=== PATIENT | female | born 1995 | race Caucasian/White ===

== ENCOUNTER 2017-03-07 07:27 | Inpatient (IN) | payer BC, MEDICAID ==
[2017-03-07] MEDS ORDERED: Ondansetron 4 MG/2 ML SDV IVPUSH PRN (07:41)
[2017-03-07] MEDS ORDERED: Acetaminophen 325 MG Tab PO PRN (07:41)
[2017-03-07] MEDS ORDERED: Nalbuphine 20 MG/1 ML Amp IVPUSH PRN (07:41)
[2017-03-07] MEDS ORDERED: Sodium Chloride 0.9% 10 ML Syringe FLUSH PRN (07:41)
[2017-03-07] MEDS ORDERED: Oxytocin/Lactated Ringers 10 UNIT/1,000 ML BAG IV SCH (07:45)
[2017-03-07] MEDS: Misoprostol 25 MCG (1/4 of 100 MCG) Tab VAG PRN ×3 (08:04→16:08)
--- NOTE | 2017-03-07 08:17 | PCM.LDHP ---
L&D History of Present Illness - General Date of Service: 03/07/17 Admit Problem/Dx: Patient Status Order with Admit Dx/Problem 03/07/17 07:42 Patient Status [ADT] Routine Admission Diagnosis/Problem Admission Diagnosis/Problem Normal Source of Information: Patient History Limitations: Reports: No limitations - History of Present Illness Introduction:: Patient is a 21 y/o at 37 1/7 wks who presents for planned IOL for preeclampsia without severe features. Has had findings of intermittently mild BP's since seen on L&D on 02/21/17. Normal labs. Some intermittent headaches. Reports same symptoms today. Intermittent headaches. No vision changes or RUQ pain. No other issues. 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 : 4 Para: 0 LMP (Approximate): - Past Surgical History Musculoskeletal Surgical History: Reports: Other (see below) (foot surgery) Social & Family History - Family History Family Medical History: Noncontributory - Tobacco Use Smoking Status *Q: Never Smoker - Alcohol Use Alcohol Use History: No - Recreational Drug Use Recreational Drug Use: No H&P Review of Systems - Review of Systems: Review Of Systems: See Below General: Reports: no symptoms Pulmonary: Reports: No Symptoms Cardiovascular: Reports: no symptoms Gastrointestinal: Reports: No symptoms Genitourinary: Reports: no symptoms Musculoskeletal: Reports: no symptoms Psychiatric: Reports: no symptoms Neurological: Reports: Headache (intermittent ) L&D Exam - Exam Exam: See Below - Vital Signs Weight: 83.143 kg - OB Specific Contraction Intensity: Irritability movement: active heart tones: present heart tones per min: 140 Heart Rate (FHR) Variability: Moderate (6-25 bmp) Presentation: Vertex - Caal Score Caal Score Cervix Position: Midposition Caal Score Consistency: Medium Caal Score Effacement: 0-30% Caal Score Dilation: 1-2 cm (Fingertip) Caal Score 's Station: -2 Caal Score Total: 4 - Exam General: alert, oriented, cooperative Lungs: Clear to auscultation, Normal respiratory effort Cardiovascular: regular rate, regular rhythm Abdomen: Soft Genitourinary: Normal external exam Extremities: normal inspection Skin: warm, dry, intact Neurological: reflexes equal bilateral DTR: 2+: patella (L), patella (R) - Problem List (1) Preeclampsia SNOMED Code(s): 251955220 ICD Code: O14.90 - UNSPECIFIED PRE-ECLAMPSIA, UNSPECIFIED TRIMESTER Status : Acute Current Visit: Yes Qualifiers: Trimester: third trimester Qualified Code(s): O14.93 - Unspecified pre- eclampsia, third trimester (2) 37 weeks gestation of SNOMED Code(s): 46496874 ICD Code: Z3A.37 - 37 WEEKS GESTATION OF Status: Acute Current Visit: Yes (3) Rh negative state in antepartum period SNOMED Code(s): 486062479, 384422739 ICD Code: O09.899 - SUPERVISION OF OTHER HIGH RISK PREGNANCIES, UNSP TRIMESTER Status: Acute Current Visit: Yes Qualifiers: Trimester: third trimester Qualified Code(s): O09.893 - Supervision of other high risk pregnancies, third trimester Problem List Initiated/Reviewed/Updated: Yes Orders Last 24hrs: Active Orders 24 hr Category Date Time Status Patient Status [ADT] Routine ADT 03/07/17 07:42 Active Activity as Tolerated [RC] PFP Care 03/07/17 07:42 Active Communication Order [RC] ASDIRECTED Care 03/07/17 07:42 Active Communication Order [RC] ASDIRECTED Care 03/07/17 07:42 Active Communication Order [RC] ASDIRECTED Care 03/07/17 07:42 Active Communication Order [RC] ASDIRECTED Care 03/07/17 07:42 Active Heart Tones [RC] ASDIRECTED Care 03/07/17 07:42 Active Notify Provider [RC] ASDIRECTED Care 03/07/17 07:42 Active Notify Provider [RC] PFP Care 03/07/17 07:42 Active Notify Provider [RC] PRN Care 03/07/17 07:42 Active Peripheral IV Care [RC] . DIRECTED Care 03/07/17 07:42 Active Vaginal Exam [RC] ASDIRECTED Care 03/07/17 07:42 Active Vital Signs [RC] PER UNIT ROUTINE Care 03/07/17 07:42 Active Regular Diet [DIET] Diet 03/07/17 Breakfast Active ALANINE AMINOTRANSFERASE,ALT [CHEM] Routine Lab 03/07/17 07:41 Ordered ASPARTATE AMNIOTRANSFERASE,AST [CHEM] Routine Lab 03/07/17 07:41 Ordered CBC W/O DIFF,HEMOGRAM [HEME] Routine Lab 03/07/17 07:41 Ordered CREATININE W/GFR [CHEM] Routine Lab 03/07/17 07:41 Ordered TYPE AND SCREEN [BBK] Routine Lab 03/07/17 07:41 Ordered UA W/O MICROSCOPIC [URIN] Routine Lab 03/07/17 08:00 Uncollected Acetaminophen [Tylenol] Med 03/07/17 07:41 Active 650 mg PO Q4H PRN Lactated Ringers [Ringers, Lactated] 1,000 ml Med 03/07/17 07:45 Active IV ASDIRECTED Misoprostol [Cytotec] Med 03/07/17 07:41 Active 25 mcg VAG Q4H PRN Nalbuphine [Nubain] Med 03/07/17 07:41 Active 10 mg IVPUSH Q2H PRN Ondansetron [Zofran] Med 03/07/17 07:41 Active 4 mg IVPUSH Q4H PRN Oxytocin/Lactated Ringers [Pitocin in LR 10 Units/1,000 Med 03/07/17 07:45 Active ML] 10 unit in 1,000 ml IV TITRATE Sodium Chloride 0.9% [Saline Flush] Med 03/07/17 07:41 Active 10 ml FLUSH ASDIRECTED PRN Electronic Heart Tones Ext w TOCO [WOMSER] Oth 03/07/17 07:42 Ordered Routine Electronic Heart Tones Internal [WOMSER] Per Unit Oth 03/07/17 07:42 Ordered Routine Peripheral IV Insertion Adult [OM.PC] Routine Oth 03/07/17 07:42 Ordered Peripheral IV Insertion Adult [OM.PC] Routine Oth 03/07/17 07:42 Ordered Resuscitation Status Routine Resus Stat 03/07/17 07:41 Ordered Medication Orders Acetaminophen (Tylenol) 650 mg PO Q4H PRN PRN Reason: Pain (Mild 1-3) and fever Lactated Ringer's (Ringers, Lactated) 1,000 mls @ 40 mls/hr IV ASDIRECTED DIPTI Oxytocin/Lactated Ringer's (Pitocin In Lr 10 Units/1,000 Ml) 10 unit in 1,000 mls @ 500 mls/hr IV TITRATE DIPTI PRN Reason: Protocol Misoprostol (Cytotec) 25 mcg VAG Q4H PRN PRN Reason: cervical ripening Stop: 03/07/17 15:42 Last Admin: 03/07/17 08:04 Dose: 25 mcg Nalbuphine HCl (Nubain) 10 mg IVPUSH Q2H PRN PRN Reason: Pain (moderate 4-6) Ondansetron HCl (Zofran) 4 mg IVPUSH Q4H PRN PRN Reason: Nausea/Vomiting Sodium Chloride (Saline Flush) 10 ml FLUSH ASDIRECTED PRN PRN Reason: Keep Vein Open Assessment/Plan Comment:: 21 y/o at 37 1/7 wks presents for IOL for preeclampsia without severe features * CBC, T&S, AST, ALT, Cr, and UA on admission * Plan for cytotec for now with madsen bulb placement when able. Eventual pitocin/AROM if needed * Pain management per patient preference * Monitor BP's, signs/symptoms of preeclampsia closely * Anticpate Rh Negative * Assess baby girl blood type after delivery to see if additional Rhogam needed Glenis Gillette MD
--- NOTE | 2017-03-07 12:25 | PCM.PNLD ---
Labor Progress Note - VS & Meds Vital Signs: Last Vital Signs Temp 36.3 C 03/07/17 07:42 Pulse 66 03/07/17 07:42 Resp 17 03/07/17 07:42 BP 129/81 03/07/17 07:42 Pulse Ox 99 03/07/17 07:42 Active Medications: Current Medications Acetaminophen (Tylenol) 650 mg PO Q4H PRN PRN Reason: Pain (Mild 1-3) and fever Lactated Ringer's (Ringers, Lactated) 1,000 mls @ 40 mls/hr IV ASDIRECTED DIPTI Oxytocin/Lactated Ringer's (Pitocin In Lr 10 Units/1,000 Ml) 10 unit in 1,000 mls @ 500 mls/hr IV TITRATE DIPTI PRN Reason: Protocol Misoprostol (Cytotec) 25 mcg VAG Q4H PRN PRN Reason: cervical ripening Stop: 03/07/17 15:42 Last Admin: 03/07/17 12:15 Dose: 25 mcg Nalbuphine HCl (Nubain) 10 mg IVPUSH Q2H PRN PRN Reason: Pain (moderate 4-6) Ondansetron HCl (Zofran) 4 mg IVPUSH Q4H PRN PRN Reason: Nausea/Vomiting Sodium Chloride (Saline Flush) 10 ml FLUSH ASDIRECTED PRN PRN Reason: Keep Vein Open - Uterine Contractions Uterine Monitoring Mode: External [place] Contraction Intensity: Mild Uterine Resting Tone: Soft - Monitoring Monitor Mode: External Ultrasound Heart Rate (FHR) Baseline: 145 Heart Rate (FHR) Variability: Moderate (6-25 bmp) Accelerations: Present, 15x15 Decelerations: None Strip Review: Category I - Vaginal Exam Dilation (cm): 1 Effacement (Percent): 75 Station: -2 Cervical Position: Midposition - Labor Progress (Free Text) Labor Progress: Patient doing well. Labs returned normal. BP's with only one mild range BP thus far. Attempt made at placing madsen bulb, but unsuccessful. 2nd cytotec placed. Continue current management Glenis Gillette MD
--- NOTE | 2017-03-07 16:16 | PCM.PNLD ---
Labor Progress Note - VS & Meds Vital Signs: Last Vital Signs Temp 36.3 C 03/07/17 07:42 Pulse 66 03/07/17 07:42 Resp 17 03/07/17 07:42 BP 129/81 03/07/17 07:42 Pulse Ox 99 03/07/17 07:42 Active Medications: Current Medications Acetaminophen (Tylenol) 650 mg PO Q4H PRN PRN Reason: Pain (Mild 1-3) and fever Lactated Ringer's (Ringers, Lactated) 1,000 mls @ 40 mls/hr IV ASDIRECTED DIPTI Oxytocin/Lactated Ringer's (Pitocin In Lr 10 Units/1,000 Ml) 10 unit in 1,000 mls @ 500 mls/hr IV TITRATE DIPTI PRN Reason: Protocol Nalbuphine HCl (Nubain) 10 mg IVPUSH Q2H PRN PRN Reason: Pain (moderate 4-6) Ondansetron HCl (Zofran) 4 mg IVPUSH Q4H PRN PRN Reason: Nausea/Vomiting Sodium Chloride (Saline Flush) 10 ml FLUSH ASDIRECTED PRN PRN Reason: Keep Vein Open Discontinued Medications Misoprostol (Cytotec) 25 mcg VAG Q4H PRN PRN Reason: cervical ripening Stop: 03/07/17 15:42 Last Admin: 03/07/17 16:08 Dose: 25 mcg - Uterine Contractions Uterine Monitoring Mode: External [place] Contraction Intensity: Mild to Moderate Uterine Resting Tone: Soft - Monitoring Monitor Mode: External Ultrasound Heart Rate (FHR) Baseline: 135 Heart Rate (FHR) Variability: Moderate (6-25 bmp) Accelerations: Present, 15x15 Decelerations: None Strip Review: Category I - Vaginal Exam Dilation (cm): 1 Effacement (Percent): 75 Station: -2 Cervical Position: Midposition - Labor Progress (Free Text) Labor Progress: Patient doing well. Feeling more uncomfortable with last cytotec dose. Cervix mostly the same, but slightly easier check and more soft. BP's upper normal range. Doing well otherwise. Continue present management. 3rd cytotec dose placed.
[2017-03-07] MEDS ORDERED: Misoprostol 25 MCG (1/4 of 100 MCG) Tab ONE (19:56)
[2017-03-07] MEDS ORDERED: Misoprostol 25 MCG (1/4 of 100 MCG) Tab VAG ONE (20:17)
--- NOTE | 2017-03-07 20:25 | PCM.PNLD ---
Labor Progress Note - VS & Meds Vital Signs: Last Vital Signs Temp 36.3 C 03/07/17 07:42 Pulse 66 03/07/17 07:42 Resp 17 03/07/17 07:42 BP 129/81 03/07/17 07:42 Pulse Ox 99 03/07/17 07:42 Active Medications: Current Medications Acetaminophen (Tylenol) 650 mg PO Q4H PRN PRN Reason: Pain (Mild 1-3) and fever Lactated Ringer's (Ringers, Lactated) 1,000 mls @ 40 mls/hr IV ASDIRECTED DIPTI Oxytocin/Lactated Ringer's (Pitocin In Lr 10 Units/1,000 Ml) 10 unit in 1,000 mls @ 500 mls/hr IV TITRATE DITPI PRN Reason: Protocol Misoprostol (Cytotec) 25 mcg VAG ONETIME ONE Stop: 03/07/17 20:18 Nalbuphine HCl (Nubain) 10 mg IVPUSH Q2H PRN PRN Reason: Pain (moderate 4-6) Ondansetron HCl (Zofran) 4 mg IVPUSH Q4H PRN PRN Reason: Nausea/Vomiting Sodium Chloride (Saline Flush) 10 ml FLUSH ASDIRECTED PRN PRN Reason: Keep Vein Open Discontinued Medications Misoprostol (Cytotec) 25 mcg VAG Q4H PRN PRN Reason: cervical ripening Stop: 03/07/17 15:42 Last Admin: 03/07/17 16:08 Dose: 25 mcg Misoprostol (Cytotec) Confirm Administered Dose 25 mcg .ROUTE .STK-MED ONE Stop: 03/07/17 19:57 Last Admin: 03/07/17 20:18 Dose: Not Given - Uterine Contractions Uterine Monitoring Mode: External [place] Contraction Intensity: Mild to Moderate Uterine Resting Tone: Soft - Monitoring Monitor Mode: External Ultrasound Heart Rate (FHR) Baseline: 145 Heart Rate (FHR) Variability: Moderate (6-25 bmp) Accelerations: Present, 15x15 Decelerations: None Strip Review: Category I - Vaginal Exam Dilation (cm): 1-2 Effacement (Percent): 75 Station: -1 Cervical Position: Midposition - Labor Progress (Free Text) Labor Progress: Patient doing well. One upper mild range BP. 4th and last cytotec placed along with madsen bulb. In four hours will plan transition to pitocin. Pain management per patient preference. Glenis Gillette MD
[2017-03-08] MEDS: Lactated Ringers 1,000 ML IV SCH ×2 (05:24→09:35)
[2017-03-08] MEDS ORDERED: Oxytocin/Lactated Ringers 10 UNIT/1,000 ML BAG IV SCH (05:30)
--- NOTE | 2017-03-08 07:09 | PCM.PNLD ---
Labor Progress Note - VS & Meds Vital Signs: Last Vital Signs Temp 36.3 C 03/07/17 07:42 Pulse 66 03/07/17 07:42 Resp 17 03/07/17 07:42 BP 129/81 03/07/17 07:42 Pulse Ox 99 03/07/17 07:42 Active Medications: Current Medications Acetaminophen (Tylenol) 650 mg PO Q4H PRN PRN Reason: Pain (Mild 1-3) and fever Lactated Ringer's (Ringers, Lactated) 1,000 mls @ 40 mls/hr IV ASDIRECTED DIPTI Last Admin: 03/08/17 05:24 Dose: 40 mls/hr Oxytocin/Lactated Ringer's (Pitocin In Lr 10 Units/1,000 Ml) 10 unit in 1,000 mls @ 500 mls/hr IV TITRATE DIPTI PRN Reason: Protocol Oxytocin/Lactated Ringer's (Pitocin In Lr 10 Units/1,000 Ml) 10 unit in 1,000 mls @ 12 mls/hr IV TITRATE DIPTI; 2 MUNITS/MIN PRN Reason: Protocol Last Titration: 03/08/17 06:43 Dose: 4 munits/min, 24 mls/hr Nalbuphine HCl (Nubain) 10 mg IVPUSH Q2H PRN PRN Reason: Pain (moderate 4-6) Last Admin: 03/07/17 23:26 Dose: 10 mg Ondansetron HCl (Zofran) 4 mg IVPUSH Q4H PRN PRN Reason: Nausea/Vomiting Sodium Chloride (Saline Flush) 10 ml FLUSH ASDIRECTED PRN PRN Reason: Keep Vein Open Discontinued Medications Misoprostol (Cytotec) 25 mcg VAG Q4H PRN PRN Reason: cervical ripening Stop: 03/07/17 15:42 Last Admin: 03/07/17 16:08 Dose: 25 mcg Misoprostol (Cytotec) Confirm Administered Dose 25 mcg .ROUTE .STK-MED ONE Stop: 03/07/17 19:57 Last Admin: 03/07/17 20:18 Dose: Not Given Misoprostol (Cytotec) 25 mcg VAG ONETIME ONE Stop: 03/07/17 20:18 Last Admin: 03/07/17 20:15 Dose: 25 mcg - Uterine Contractions Uterine Monitoring Mode: External [place] Contraction Intensity: Mild to Moderate Uterine Resting Tone: Soft - Monitoring Monitor Mode: External Ultrasound Heart Rate (FHR) Baseline: 145 Heart Rate (FHR) Variability: Moderate (6-25 bmp) Accelerations: Present, 15x15 Decelerations: None Strip Review: Category I - Labor Progress (Free Text) Labor Progress: Patient last cytotec wore off a little after mid night. Due to staffing issues not able to start pitocin until about 0500 this AM. Currently at 4. Patient feeling uncomfortable. More bulb still in place. Will reassess when able. Glenis Gillette MD
[2017-03-08] MEDS ORDERED: fentaNYL 100 MCG/2 ML SDV ONE (08:40)
--- NOTE | 2017-03-08 08:44 | PCM.PREANE ---
Preanesthetic Assessment - Anesthesia/Transfusion/Family Hx Anesthesia History: Prior Anesthesia Without Reaction Family History of Anesthesia Reaction: No Transfusion History: No Prior Transfusion(s) Intubation History: Unknown - Review of Systems General: No Symptoms Pulmonary: No Symptoms Cardiovascular: No Symptoms Gastrointestinal: Other (GERD) Neurological: No Symptoms Other: Reports: None - Physical Assessment NPO Status Date: 03/08/17 NPO Status Time: 08:30 O2 Sat by Pulse Oximetry: 99 Respiratory Rate: 17 Vital Signs: Last Vital Signs Temp 36.3 C 03/07/17 07:42 Pulse 66 03/07/17 07:42 Resp 17 03/07/17 07:42 BP 129/81 03/07/17 07:42 Pulse Ox 99 03/07/17 07:42 Height: 1.68 m Weight: 83.824 kg ASA Class: 2 Mental Status: Alert & Oriented x3 Airway Class: Mallampati = 1 Dentition: Reports: Normal Dentition Thyro-Mental Finger Breadths: 3 Mouth Opening Finger Breadths: 3 ROM/Head Extension: Full Lungs: Clear to auscultation, Normal respiratory effort Cardiovascular: Regular Rate, Regular Rhythm - Lab Values: Laboratory Last Values WBC 13.60 K/mm3 (3.98-10.04) H 03/07/17 08:10 RBC 4.25 M/mm3 (3.98-5.22) 03/07/17 08:10 Hgb 11.8 gm/L (11.2-15.7) 03/07/17 08:10 Hct 35.0 % (34.1-44.9) 03/07/17 08:10 MCV 82.4 fl (79.4-94.8) 03/07/17 08:10 MCH 27.8 pg (25.6-32.2) 03/07/17 08:10 MCHC 33.7 g/dl (32.2-35.5) 03/07/17 08:10 RDW Std Deviation 38.9 fL (36.4-46.3) 03/07/17 08:10 Plt Count 312 K/mm3 (182-369) 03/07/17 08:10 MPV 12.3 fl (9.4-12.3) 03/07/17 08:10 Creatinine 0.8 mg/dL (0.55-1.02) 03/07/17 08:10 Est Cr Clr Drug Dosing 106.36 mL/min 03/07/17 08:10 Estimated GFR (MDRD) > 60 mL/min (>60) 03/07/17 08:10 AST 11 U/L (15-37) L 03/07/17 08:10 ALT 14 U/L (14-59) 03/07/17 08:10 Urine Color Yellow (Yellow) 03/07/17 07:35 Urine Appearance Clear (Clear) 03/07/17 07:35 Urine pH 7.0 (5.0-8.0) 03/07/17 07:35 Ur Specific [place] 1.020 (1.005-1.030) 03/07/17 07:35 Urine Protein Negative (Negative) 03/07/17 07:35 Urine Glucose (UA) Negative (Negative) 03/07/17 07:35 Urine Ketones Negative (Negative) 03/07/17 07:35 Urine Occult Blood Negative (Negative) 03/07/17 07:35 Urine Nitrite Negative (Negative) 03/07/17 07:35 Urine Bilirubin Negative (Negative) 03/07/17 07:35 Urine Urobilinogen 0.2 (0.2-1.0) 03/07/17 07:35 Ur Leukocyte Esterase Negative (Negative) 03/07/17 07:35 Blood Type O NEGATIVE 03/07/17 08:10 Gel Antibody Screen Positive 03/07/17 08:10 - Allergies Allergies/Adverse Reactions: Allergies Allergy/AdvReac Type Severity Reaction Status Date / Time Penicillins Allergy Severe Hives Verified 03/07/17 11:29 hydromorphone [From Dilaudid] Allergy Intermediate Itching Verified 03/07/17 11: 29 ampicillin Allergy Hives Verified 03/07/17 11:29 - Blood Blood Available: No Product(s) Available: None - Anesthesia Plan Pre-Op Medication Ordered: None - Acknowledgements Anesthesia Type Planned: Epidural Pt an Appropriate Candidate for the Planned Anesthesia: Yes Alternatives and Risks of Anesthesia Discussed w Pt/Guardian: Yes Pt/Guardian Understands and Agrees with Anesthesia Plan: Yes PreAnesthesia Questionnaire - Past Health History Medical/Surgical History: Denies 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 [No Known Home Meds] 03/07/17 [History] - CURRENT (IN HOUSE) MEDS Current Meds: Current Medications Acetaminophen (Tylenol) 650 mg PO Q4H PRN PRN Reason: Pain (Mild 1-3) and fever Lactated Ringer's (Ringers, Lactated) 1,000 mls @ 40 mls/hr IV ASDIRECTED DIPTI Last Admin: 03/08/17 05:24 Dose: 40 mls/hr Oxytocin/Lactated Ringer's (Pitocin In Lr 10 Units/1,000 Ml) 10 unit in 1,000 mls @ 500 mls/hr IV TITRATE DIPTI PRN Reason: Protocol Oxytocin/Lactated Ringer's (Pitocin In Lr 10 Units/1,000 Ml) 10 unit in 1,000 mls @ 12 mls/hr IV TITRATE DIPTI; 2 MUNITS/MIN PRN Reason: Protocol Last Titration: 03/08/17 07:40 Dose: 6 munits/min, 36 mls/hr Nalbuphine HCl (Nubain) 10 mg IVPUSH Q2H PRN PRN Reason: Pain (moderate 4-6) Last Admin: 03/07/17 23:26 Dose: 10 mg Ondansetron HCl (Zofran) 4 mg IVPUSH Q4H PRN PRN Reason: Nausea/Vomiting Sodium Chloride (Saline Flush) 10 ml FLUSH ASDIRECTED PRN PRN Reason: Keep Vein Open Discontinued Medications Misoprostol (Cytotec) 25 mcg VAG Q4H PRN PRN Reason: cervical ripening Stop: 03/07/17 15:42 Last Admin: 03/07/17 16:08 Dose: 25 mcg Misoprostol (Cytotec) Confirm Administered Dose 25 mcg .ROUTE .STK-MED ONE Stop: 03/07/17 19:57 Last Admin: 03/07/17 20:18 Dose: Not Given Misoprostol (Cytotec) 25 mcg VAG ONETIME ONE Stop: 03/07/17 20:18 Last Admin: 03/07/17 20:15 Dose: 25 mcg
[2017-03-08] MEDS ORDERED: ePHEDrine 50 MG/ML SDV IVPUSH PRN (08:46)
[2017-03-08] MEDS ORDERED: fentaNYL 100 MCG/2 ML SDV EPIDUR PRN (08:46)
[2017-03-08] MEDS ORDERED: Ondansetron 4 MG/2 ML SDV IVPUSH PRN (08:46)
[2017-03-08] MEDS ORDERED: diphenhydrAMINE 50 MG/ML SDV IVPUSH PRN (08:46)
[2017-03-08] MEDS ORDERED: Bupivacaine 0.25% 10 ML SDV ONE (09:00)
[2017-03-08] MEDS: Bupivacaine/fentaNYL/NS 100 ML Bag EPIDUR SCH ×2 (09:06→15:10)
--- NOTE | 2017-03-08 12:18 | PCM.PNLD ---
Labor Progress Note - VS & Meds Vital Signs: Last Vital Signs Temp 36.3 C 03/07/17 07:42 Pulse 66 03/07/17 07:42 Resp 17 03/08/17 08:44 BP 129/81 03/07/17 07:42 Pulse Ox 99 03/08/17 08:44 Active Medications: Current Medications Acetaminophen (Tylenol) 650 mg PO Q4H PRN PRN Reason: Pain (Mild 1-3) and fever Diphenhydramine HCl (Benadryl) 25 mg IVPUSH Q6H PRN PRN Reason: Pruritis Ephedrine Sulfate (Ephedrine Sulfate) 5 mg IVPUSH ASDIRECTED PRN PRN Reason: Hypotension Fentanyl (Sublimaze) 100 mcg EPIDUR Q3H PRN PRN Reason: Pain Last Admin: 03/08/17 09:06 Dose: 100 mcg Fentanyl/Bupivacaine HCl (Fentanyl/Bupivacaine/Ns 2 Mcg-0.125% 100 Ml) 100 ml EPIDUR ASDIRECTED DIPTI Last Admin: 03/08/17 09:06 Dose: 100 ml Lactated Ringer's (Ringers, Lactated) 1,000 mls @ 40 mls/hr IV ASDIRECTED DIPTI Last Admin: 03/08/17 05:24 Dose: 40 mls/hr Oxytocin/Lactated Ringer's (Pitocin In Lr 10 Units/1,000 Ml) 10 unit in 1,000 mls @ 500 mls/hr IV TITRATE DIPTI PRN Reason: Protocol Oxytocin/Lactated Ringer's (Pitocin In Lr 10 Units/1,000 Ml) 10 unit in 1,000 mls @ 12 mls/hr IV TITRATE DIPTI; 2 MUNITS/MIN PRN Reason: Protocol Last Titration: 03/08/17 07:40 Dose: 6 munits/min, 36 mls/hr Nalbuphine HCl (Nubain) 10 mg IVPUSH Q2H PRN PRN Reason: Pain (moderate 4-6) Last Admin: 03/07/17 23:26 Dose: 10 mg Ondansetron HCl (Zofran) 4 mg IVPUSH Q4H PRN PRN Reason: Nausea/Vomiting Ondansetron HCl (Zofran) 4 mg IVPUSH ONETIME PRN PRN Reason: Nausea/Vomiting Sodium Chloride (Saline Flush) 10 ml FLUSH ASDIRECTED PRN PRN Reason: Keep Vein Open Discontinued Medications Fentanyl (Sublimaze) Confirm Administered Dose 100 mcg .ROUTE .STK-MED ONE Stop: 03/08/17 08:41 Last Admin: 03/08/17 09:30 Dose: Not Given Misoprostol (Cytotec) 25 mcg VAG Q4H PRN PRN Reason: cervical ripening Stop: 03/07/17 15:42 Last Admin: 03/07/17 16:08 Dose: 25 mcg Misoprostol (Cytotec) Confirm Administered Dose 25 mcg .ROUTE .STK-MED ONE Stop: 03/07/17 19:57 Last Admin: 03/07/17 20:18 Dose: Not Given Misoprostol (Cytotec) 25 mcg VAG ONETIME ONE Stop: 03/07/17 20:18 Last Admin: 03/07/17 20:15 Dose: 25 mcg - Uterine Contractions Uterine Monitoring Mode: External [place] Contraction Intensity: Mild to Moderate Uterine Resting Tone: Soft - Monitoring Monitor Mode: External Ultrasound Heart Rate (FHR) Baseline: 150 Heart Rate (FHR) Variability: Moderate (6-25 bmp) Accelerations: Present, 15x15 Decelerations: Early Strip Review: Category I - Vaginal Exam Dilation (cm): 4 Effacement (Percent): 80 Station: 1 Cervical Position: Anterior - Labor Progress (Free Text) Labor Progress: Patient doing well. Comfortable with Epidural. Nursing with some difficulty picking up contractions and so IUPC placed. Pitocin currently at 4. Mostly normal range BP's with few mild range BP's. Continue present management Glenis Gillette MD
--- NOTE | 2017-03-08 13:44 | PCM.SN ---
- Free Text/Narrative Note: 1315 Called by nursing due increase in heart rate baseline. IUPC placed at 1210 and on pitocin of 4. At 1235 had a prolonged, 2.5 minute, deceleration down in to the 70's. After this baby did recover slightly tachy to the 170's. By time I arrived FHR baseline 180's, but with moderate variability, and accelerations. SVE done by myself and more dilated since my last exam, but similar to last nursing exam 45 minutes ago. No signs of fever on several assessments. Will continue to assess closely. Glenis Gillette MD
[2017-03-08] MEDS ORDERED: Sodium Chloride 0.9% 100 ML ONE (13:47)
[2017-03-08] MEDS ORDERED: Gentamicin 160 MG in Sodium Chloride 0.9% 100 ML IV ONE (14:15)
--- NOTE | 2017-03-08 15:05 | PCM.SN ---
- Free Text/Narrative Note: Patient feeling more pressure in her bottom. Checked and found to be 6-7 cm. Rest of exam unchanged. Temperature now normal and baby heart rate baseline down to 165. On Vancomycin and Gentamicin for chorioamnioitis (PCN and ampicillin allergy). Continue present management Glenis Gillette MD
--- NOTE | 2017-03-08 17:54 | PCM.DEL ---
L & D Note - General Info Date of Service: 03/08/17 - Delivery Note Labor: induced by oxytocin Cervical Ripening Method: Balloon Device, Misoprostil Delivery Outcome: Livebirth Delivery Method: Spontaneous Vaginal Delivery Infant Delivery Mode: Spontaneous Presentation: Left Occiput Anterior ([place]) Nuchal cord: none Anesthesia Type: Epidural Amniotic Fluid Description: Clear Episiotomy Type: None Laceration: 1st degree Suture type: vicryl Suture size: 2-0 Placenta: intact, spontaneous Cord: 3 vessels Estimated blood loss: 250 Resuscitation needed: Yes [place]: suctioned, cathether, stimulated, warmed, blanket used, warmer used Score 1 min: 7 Score 5 min: 9 - Patient Data Vitals - most recent: Last Vital Signs Temp 36.3 C 03/07/17 07:42 Pulse 66 03/07/17 07:42 Resp 17 03/08/17 08:44 BP 129/81 03/07/17 07:42 Pulse Ox 99 03/08/17 08:44 Weight - most recent: 83.824 kg Lab Results last 24 hrs: Laboratory Results - last 24 hr 03/07/17 03/08/17 03/08/17 Range/Units 08:10 14:15 14:15 WBC 20.69 H (3.98-10.04) K/mm3 RBC 4.14 (3.98-5.22) M/mm3 Hgb 11.6 (11.2-15.7) gm/L Hct 34.2 (34.1-44.9) % MCV 82.6 (79.4-94.8) fl MCH 28.0 (25.6-32.2) pg MCHC 33.9 (32.2-35.5) g/dl RDW Std Deviation 39.2 (36.4-46.3) fL Plt Count 258 (182-369) K/mm3 MPV 12.0 (9.4-12.3) fl Creatinine 1.0 (0.55-1.02) mg/dL Est Cr Clr Drug Dosing 81.91 mL/min Estimated GFR (MDRD) > 60 (>60) mL/min AST 12 L (15-37) U/L ALT 13 L (14-59) U/L Blood Type O NEGATIVE Gel Antibody Screen Positive Antibody Identification Anti-D Med Orders - Current: Current Medications Acetaminophen (Tylenol) 650 mg PO Q4H PRN PRN Reason: Pain (Mild 1-3) and fever Last Admin: 03/08/17 13:46 Dose: 650 mg Diphenhydramine HCl (Benadryl) 25 mg IVPUSH Q6H PRN PRN Reason: Pruritis Ephedrine Sulfate (Ephedrine Sulfate) 5 mg IVPUSH ASDIRECTED PRN PRN Reason: Hypotension Fentanyl (Sublimaze) 100 mcg EPIDUR Q3H PRN PRN Reason: Pain Last Admin: 03/08/17 09:06 Dose: 100 mcg Fentanyl/Bupivacaine HCl (Fentanyl/Bupivacaine/Ns 2 Mcg-0.125% 100 Ml) 100 ml EPIDUR ASDIRECTED DIPTI Last Admin: 03/08/17 15:10 Dose: 100 ml Lactated Ringer's (Ringers, Lactated) 1,000 mls @ 40 mls/hr IV ASDIRECTED DIPTI Last Admin: 03/08/17 09:35 Dose: 40 mls/hr Oxytocin/Lactated Ringer's (Pitocin In Lr 10 Units/1,000 Ml) 10 unit in 1,000 mls @ 500 mls/hr IV TITRATE DIPTI PRN Reason: Protocol Oxytocin/Lactated Ringer's (Pitocin In Lr 10 Units/1,000 Ml) 10 unit in 1,000 mls @ 12 mls/hr IV TITRATE DIPTI; 2 MUNITS/MIN PRN Reason: Protocol Last Titration: 03/08/17 16:40 Dose: 2 munits/min, 12 mls/hr Vancomycin HCl 1 gm/ Sodium (Chloride) 250 mls @ 250 mls/hr IV Q12H DIPTI Last Admin: 03/08/17 14:05 Dose: 250 mls/hr Nalbuphine HCl (Nubain) 10 mg IVPUSH Q2H PRN PRN Reason: Pain (moderate 4-6) Last Admin: 03/07/17 23:26 Dose: 10 mg Ondansetron HCl (Zofran) 4 mg IVPUSH Q4H PRN PRN Reason: Nausea/Vomiting Last Admin: 03/08/17 13:24 Dose: 4 mg Ondansetron HCl (Zofran) 4 mg IVPUSH ONETIME PRN PRN Reason: Nausea/Vomiting Sodium Chloride (Saline Flush) 10 ml FLUSH ASDIRECTED PRN PRN Reason: Keep Vein Open Discontinued Medications Fentanyl (Sublimaze) Confirm Administered Dose 100 mcg .ROUTE .STK-MED ONE Stop: 03/08/17 08:41 Last Admin: 03/08/17 09:30 Dose: Not Given Sodium Chloride (Normal Saline) Confirm Administered Dose 100 mls @ as directed .ROUTE .STK-MED ONE Stop: 03/08/17 13:48 Last Admin: 03/08/17 16:51 Dose: Not Given Gentamicin Sulfate 160 mg/ (Sodium Chloride) 104 mls @ 200 mls/hr IV ONETIME ONE Stop: 03/08/17 14:46 Last Admin: 03/08/17 14:10 Dose: 200 mls/hr Misoprostol (Cytotec) 25 mcg VAG Q4H PRN PRN Reason: cervical ripening Stop: 03/07/17 15:42 Last Admin: 03/07/17 16:08 Dose: 25 mcg Misoprostol (Cytotec) Confirm Administered Dose 25 mcg .ROUTE .STK-MED ONE Stop: 03/07/17 19:57 Last Admin: 03/07/17 20:18 Dose: Not Given Misoprostol (Cytotec) 25 mcg VAG ONETIME ONE Stop: 03/07/17 20:18 Last Admin: 03/07/17 20:15 Dose: 25 mcg - Problem List & Annotations (1) Preeclampsia SNOMED Code(s): 092099303 Code(s): O14.90 - UNSPECIFIED PRE-ECLAMPSIA, UNSPECIFIED TRIMESTER Status: Acute Current Visit: Yes Qualifiers: Trimester: third trimester Qualified Code(s): O14.93 - Unspecified pre- eclampsia, third trimester (2) 37 weeks gestation of SNOMED Code(s): 84627846 Code(s): Z3A.37 - 37 WEEKS GESTATION OF Status: Acute Current Visit: Yes (3) Rh negative state in antepartum period SNOMED Code(s): 383422855, 178613160 Code(s): O09.899 - SUPERVISION OF OTHER HIGH RISK PREGNANCIES, UNSP TRIMESTER Status: Acute Current Visit: Yes Qualifiers: Trimester: third trimester Qualified Code(s): O09.893 - Supervision of other high risk pregnancies, third trimester (4) Chorioamnionitis SNOMED Code(s): 74990050 Code(s): O41.1290 - CHORIOAMNIONITIS, UNSP TRIMESTER, NOT APPLICABLE OR UNSP Status: Acute Current Visit: Yes Qualifiers: Fetus number: single or unspecified fetus Trimester: third trimester Qualified Code(s): O41.1230 - Chorioamnionitis, third trimester, not applicable or unspecified (5) Vaginal delivery SNOMED Code(s): 495601224 Code(s): O80 - ENCOUNTER FOR FULL-TERM UNCOMPLICATED DELIVERY Status: Acute Current Visit: Yes - Problem List Review Problem List Initiated/Reviewed/Updated: Yes - My Orders Last 24 Hours: My Active Orders 03/08/17 05:30 Oxytocin/Lactated Ringers [Pitocin in LR 10 Units/1,000 ML] 10 unit in 1,000 ml IV TITRATE 03/08/17 14:00 Vancomycin [Vancocin] 1 gm Sodium Chloride 0.9% [Normal Saline] 250 ml IV Q12H 03/08/17 17:52 Patient Status Manage Transfer [TRANSFER] Routine - Assessment Assessment:: 21 y/o G4 now P1031 PPD#0 from at 37 2/7 wks - Plan Plan:: * Routine cares * Encourage breast feeding * Discharge home in 2 days Chorioamnionitis * S/p Vanc and Gent in labor. No additional antibiotics at this time Preeclampsia without severe features * Assess BP's closely * BP check in 1-2 weeks Rh Negative * Assess baby girl blood type after delivery to see if additional Rhogam needed Glenis Gillette MD
[2017-03-08] MEDS ORDERED: Lanolin 100% Cream 7 GM Tube TOP PRN (18:15)
[2017-03-08] MEDS ORDERED: Acetaminophen 325 MG Tab PO PRN (18:15)
[2017-03-08] MEDS: Benzocaine/Menthol 20%-0.5% Spray 56 GM Canister TOP PRN (21:15)
[2017-03-08] MEDS: Witch Hazel Medicated Pads 100/Jar TOP PRN (21:16)
--- NOTE | 2017-03-09 07:25 | PCM.PNPP ---
- General Info Date of Service: 03/09/17 Subjective Update: 21 y/o G4 now P1031 PPD#1 from at 37 2/7 wks Pain controlled No chills Moderate lochia Functional Status: Reports: pain controlled - Review of Systems General: Reports: No Symptoms HEENT: Reports: no symptoms Pulmonary: Reports: no symptoms Cardiovascular: Reports: No Symptoms Gastrointestinal: Reports: No symptoms Genitourinary: Reports: no symptoms Musculoskeletal: Reports: no symptoms Skin: Reports: no symptoms Neurological: Reports: No Symptoms Psychiatric: Reports: no symptoms - General Info Date of Service: 03/09/17 - Patient Data Vital Signs - most recent: Last Vital Signs Temp 37.2 C 03/09/17 04:00 Pulse 52 L 03/09/17 04:00 Resp 17 03/09/17 04:00 BP 133/68 03/09/17 04:00 Pulse Ox 99 03/09/17 04:00 Weight - most recent: 83.824 kg Lab Results - last 24 hrs: Laboratory Results - last 24 hr 03/07/17 03/08/17 03/08/17 Range/Units 08:10 14:15 14:15 WBC 20.69 H (3.98-10.04) K/mm3 RBC 4.14 (3.98-5.22) M/mm3 Hgb 11.6 (11.2-15.7) gm/L Hct 34.2 (34.1-44.9) % MCV 82.6 (79.4-94.8) fl MCH 28.0 (25.6-32.2) pg MCHC 33.9 (32.2-35.5) g/dl RDW Std Deviation 39.2 (36.4-46.3) fL Plt Count 258 (182-369) K/mm3 MPV 12.0 (9.4-12.3) fl Creatinine 1.0 (0.55-1.02) mg/dL Est Cr Clr Drug Dosing 81.91 mL/min Estimated GFR (MDRD) > 60 (>60) mL/min AST 12 L (15-37) U/L ALT 13 L (14-59) U/L Blood Type O NEGATIVE Gel Antibody Screen Positive Antibody Identification Anti-D Med Orders - Current: Current Medications Acetaminophen (Tylenol) 650 mg PO Q4H PRN PRN Reason: mild pain or fever Benzocaine/Menthol (Dermoplast Pain Relief [place]) 0 gm TOP ASDIRECTED PRN PRN Reason: Perineal Comfort Measure Last Admin: 03/08/17 21:15 Dose: 1 canister Docusate Sodium (Colace) 100 mg PO BID PRN PRN Reason: Constipation Emollient Ointment (Lansinoh Hpa) 0 gm TOP ASDIRECTED PRN PRN Reason: Sore Nipples Ibuprofen (Motrin) 600 mg PO Q6H PRN PRN Reason: Mild pain or fever Witch Chrissie (Tucks) 1 pad TOP ASDIRECTED PRN PRN Reason: Hemorrhoid pain Last Admin: 03/08/17 21:16 Dose: 1 container Discontinued Medications Acetaminophen (Tylenol) 650 mg PO Q4H PRN PRN Reason: Pain (Mild 1-3) and fever Last Admin: 03/08/17 13:46 Dose: 650 mg Diphenhydramine HCl (Benadryl) 25 mg IVPUSH Q6H PRN PRN Reason: Pruritis Ephedrine Sulfate (Ephedrine Sulfate) 5 mg IVPUSH ASDIRECTED PRN PRN Reason: Hypotension Fentanyl (Sublimaze) Confirm Administered Dose 100 mcg .ROUTE .[facility]-MED ONE Stop: 03/08/17 08:41 Last Admin: 03/08/17 09:30 Dose: Not Given Fentanyl (Sublimaze) 100 mcg EPIDUR Q3H PRN PRN Reason: Pain Last Admin: 03/08/17 09:06 Dose: 100 mcg Fentanyl/Bupivacaine HCl (Fentanyl/Bupivacaine/Ns 2 Mcg-0.125% 100 Ml) 100 ml EPIDUR ASDIRECTED [facility] Last Admin: 03/08/17 15:10 Dose: 100 ml Lactated Ringer's (Ringers, Lactated) 1,000 mls @ 40 mls/hr IV ASDIRECTED [facility] Last Admin: 03/08/17 09:35 Dose: 40 mls/hr Oxytocin/Lactated Ringer's (Pitocin In Lr 10 Units/1,000 Ml) 10 unit in 1,000 mls @ 500 mls/hr IV TITRATE DIPTI PRN Reason: Protocol Oxytocin/Lactated Ringer's (Pitocin In Lr 10 Units/1,000 Ml) 10 unit in 1,000 mls @ 12 mls/hr IV TITRATE DIPTI; 2 MUNITS/MIN PRN Reason: Protocol Last Titration: 03/08/17 16:40 Dose: 2 munits/min, 12 mls/hr Sodium Chloride (Normal Saline) Confirm Administered Dose 100 mls @ as directed .ROUTE .STK-MED ONE Stop: 03/08/17 13:48 Last Admin: 03/08/17 16:51 Dose: Not Given Vancomycin HCl 1 gm/ Sodium (Chloride) 250 mls @ 250 mls/hr IV Q12H DIPTI Last Admin: 03/08/17 14:05 Dose: 250 mls/hr Gentamicin Sulfate 160 mg/ (Sodium Chloride) 104 mls @ 200 mls/hr IV ONETIME ONE Stop: 03/08/17 14:46 Last Admin: 03/08/17 14:10 Dose: 200 mls/hr Misoprostol (Cytotec) 25 mcg VAG Q4H PRN PRN Reason: cervical ripening Stop: 03/07/17 15:42 Last Admin: 03/07/17 16:08 Dose: 25 mcg Misoprostol (Cytotec) Confirm Administered Dose 25 mcg .ROUTE .STK-MED ONE Stop: 03/07/17 19:57 Last Admin: 03/07/17 20:18 Dose: Not Given Misoprostol (Cytotec) 25 mcg VAG ONETIME ONE Stop: 03/07/17 20:18 Last Admin: 03/07/17 20:15 Dose: 25 mcg Nalbuphine HCl (Nubain) 10 mg IVPUSH Q2H PRN PRN Reason: Pain (moderate 4-6) Last Admin: 03/07/17 23:26 Dose: 10 mg Ondansetron HCl (Zofran) 4 mg IVPUSH Q4H PRN PRN Reason: Nausea/Vomiting Last Admin: 03/08/17 13:24 Dose: 4 mg Ondansetron HCl (Zofran) 4 mg IVPUSH ONETIME PRN PRN Reason: Nausea/Vomiting Sodium Chloride (Saline Flush) 10 ml FLUSH ASDIRECTED PRN PRN Reason: Keep Vein Open - Infant Interaction Disposition, : [place] to Nursery Support Person: Significant Other - Recovery Exam Fundal Tone: Firm Fundal Level: At Umbilicus Fundal Placement: Midline Lochia Amount: Small, Moderate Lochia Color: Rubra/Red Perineum Description: Other (see below) Other Perinuem Description: 1' laceration repaired/tucks and derm in use Episiotomy/Laceration: Approximated Bladder Status: Voiding Urinary Elimination: Voided - Exam General: alert, oriented HEENT: Pupils equal Neck: supple Lungs: Clear to auscultation, Normal respiratory effort Cardiovascular: Regular Rate, Regular Rhythm Abdomen: bowel sounds present, soft Extremities: no edema Skin: warm, dry, intact Neurological: no new focal deficit Psy/Mental Status: alert, normal affect, normal mood - Problem List Review Problem List Initiated/Reviewed/Updated: Yes - Assessment Assessment:: 21 y/o G4 now P1031 PPD#1 from at 37 2/7 wks after induction for pre- ecclampsia - Plan Plan:: Assessment:: 21 y/o G4 now P1031 PPD#1 from at 37 2/7 wks Plan:: * Routine cares * Encourage breast feeding * Discharge home in 2 days Chorioamnionitis * S/p Vanc and Gent in labor. No additional antibiotics at this time Preeclampsia without severe features * Assess BP's closely * BP check in 1-2 weeks Rh Negative * Baby A neg
[2017-03-09] MEDS: Docusate Sodium 100 MG Cap PO PRN ×2 (09:05→20:52)
[2017-03-09] MEDS: Ibuprofen 600 MG Tab PO PRN ×2 (11:28→18:58)
[2017-03-09] MEDS: Witch Hazel Medicated Pads 100/Jar TOP PRN (20:52)
--- NOTE | 2017-03-09 20:56 | PCM48HPAN ---
Post Anesthesia Note - EVALUATION WITHIN 48HRS OF ANESTHETIC Vital Signs in Normal Range: Yes Patient Participated in Evaluation: Yes Respiratory Function Stable: Yes Airway Patent: Yes Cardiovascular Function Stable: Yes Hydration Status Stable: Yes Pain Control Satisfactory: Yes Nausea and Vomiting Control Satisfactory: Yes Mental Status Recovered: Yes
--- NOTE | 2017-03-10 06:14 | PCM.DCSUM1 ---
Discharge Summary - Hospital Course Brief History: 21 year old G1 now P1 admitted for IOL for pre-ecclampsia. Utilized prostaglandins, madsen bulb and pitocin. on 03/08/17. Blood pressures mostly normal range . Discharged home PPD2 in good condition. - Discharge Data Discharge Date: 03/10/17 Discharge Disposition: Home, Self-Care 01 Condition: Good - Discharge Diagnosis/Problem(s) (1) 37 weeks gestation of SNOMED Code(s): 20753291 ICD Code: Z3A.37 - 37 WEEKS GESTATION OF Status: Acute Current Visit: Yes (2) Chorioamnionitis SNOMED Code(s): 33094454 ICD Code: O41.1290 - CHORIOAMNIONITIS, UNSP TRIMESTER, NOT APPLICABLE OR UNSP Status: Acute Current Visit: Yes Qualifiers: Fetus number: single or unspecified fetus Trimester: third trimester Qualified Code(s): O41.1230 - Chorioamnionitis, third trimester, not applicable or unspecified (3) Preeclampsia SNOMED Code(s): 854386082 ICD Code: O14.90 - UNSPECIFIED PRE-ECLAMPSIA, UNSPECIFIED TRIMESTER Status : Acute Current Visit: Yes Qualifiers: Trimester: third trimester Qualified Code(s): O14.93 - Unspecified pre- eclampsia, third trimester (4) Rh negative state in antepartum period SNOMED Code(s): 980124427, 444187866 ICD Code: O09.899 - SUPERVISION OF OTHER HIGH RISK PREGNANCIES, UNSP TRIMESTER Status: Acute Current Visit: Yes Qualifiers: Trimester: third trimester Qualified Code(s): O09.893 - Supervision of other high risk pregnancies, third trimester (5) Vaginal delivery SNOMED Code(s): 215046658 ICD Code: O80 - ENCOUNTER FOR FULL-TERM UNCOMPLICATED DELIVERY Status: Acute Current Visit: Yes - Patient Summary/Data Operative Procedure(s) Performed: - Patient Instructions Diet: Heart Healthy Diet Activity: No Strenuous Activities Driving: May Drive Today Showering/Bathing: May Shower Notify Provider of: Fever, Increased Pain, Swelling and Redness, Drainage, Nausea and/or Vomiting - Discharge Plan Home Medications: Home Meds . [No Known Home Meds] 03/07/17 [History] Patient Handouts: Vaginal Delivery Referrals: Glenis Gillette MD [Physician] - (1 week bp check) - Discharge Summary/Plan Comment DC Time >30 min.: No - Patient Data Vitals - Most Recent: Last Vital Signs Temp 36.1 C 03/09/17 20:38 Pulse 63 03/09/17 20:38 Resp 16 03/09/17 20:38 BP 135/94 H 03/09/17 20:38 Pulse Ox 99 03/09/17 20:38 Weight - Most Recent: 83.824 kg I&O - Last 24 hours: Intake & Output 03/09/17 03/09/17 03/10/17 14:59 22:59 06:59 Intake Total 0 Balance 0 Med Orders - Current: Current Medications Acetaminophen (Tylenol) 650 mg PO Q4H PRN PRN Reason: mild pain or fever Benzocaine/Menthol (Dermoplast Pain Relief [place]) 0 gm TOP ASDIRECTED PRN PRN Reason: Perineal Comfort Measure Last Admin: 03/08/17 21:15 Dose: 1 canister Docusate Sodium (Colace) 100 mg PO BID PRN PRN Reason: Constipation Last Admin: 03/09/17 20:52 Dose: 100 mg Emollient Ointment (Lansinoh Hpa) 0 gm TOP ASDIRECTED PRN PRN Reason: Sore Nipples Last Admin: 03/09/17 20:52 Dose: 1 tube Ibuprofen (Motrin) 600 mg PO Q6H PRN PRN Reason: Mild pain or fever Last Admin: 03/09/17 18:58 Dose: 600 mg Witch Chrissie (Tucks) 1 pad TOP ASDIRECTED PRN PRN Reason: Hemorrhoid pain Last Admin: 03/09/17 20:52 Dose: 1 container Discontinued Medications Acetaminophen (Tylenol) 650 mg PO Q4H PRN PRN Reason: Pain (Mild 1-3) and fever Last Admin: 03/08/17 13:46 Dose: 650 mg Diphenhydramine HCl (Benadryl) 25 mg IVPUSH Q6H PRN PRN Reason: Pruritis Ephedrine Sulfate (Ephedrine Sulfate) 5 mg IVPUSH ASDIRECTED PRN PRN Reason: Hypotension Fentanyl (Sublimaze) Confirm Administered Dose 100 mcg .ROUTE .STK-MED ONE Stop: 03/08/17 08:41 Last Admin: 03/08/17 09:30 Dose: Not Given Fentanyl (Sublimaze) 100 mcg EPIDUR Q3H PRN PRN Reason: Pain Last Admin: 03/08/17 09:06 Dose: 100 mcg Fentanyl/Bupivacaine HCl (Fentanyl/Bupivacaine/Ns 2 Mcg-0.125% 100 Ml) 100 ml EPIDUR ASDIRECTED DIPTI Last Admin: 03/08/17 15:10 Dose: 100 ml Lactated Ringer's (Ringers, Lactated) 1,000 mls @ 40 mls/hr IV ASDIRECTED DIPTI Last Admin: 03/08/17 09:35 Dose: 40 mls/hr Oxytocin/Lactated Ringer's (Pitocin In Lr 10 Units/1,000 Ml) 10 unit in 1,000 mls @ 500 mls/hr IV TITRATE DIPTI PRN Reason: Protocol Oxytocin/Lactated Ringer's (Pitocin In Lr 10 Units/1,000 Ml) 10 unit in 1,000 mls @ 12 mls/hr IV TITRATE DIPTI; 2 MUNITS/MIN PRN Reason: Protocol Last Titration: 03/08/17 16:40 Dose: 2 munits/min, 12 mls/hr Sodium Chloride (Normal Saline) Confirm Administered Dose 100 mls @ as directed .ROUTE .STK-MED ONE Stop: 03/08/17 13:48 Last Admin: 03/08/17 16:51 Dose: Not Given Vancomycin HCl 1 gm/ Sodium (Chloride) 250 mls @ 250 mls/hr IV Q12H DIPTI Last Admin: 03/08/17 14:05 Dose: 250 mls/hr Gentamicin Sulfate 160 mg/ (Sodium Chloride) 104 mls @ 200 mls/hr IV ONETIME ONE Stop: 03/08/17 14:46 Last Admin: 03/08/17 14:10 Dose: 200 mls/hr Misoprostol (Cytotec) 25 mcg VAG Q4H PRN PRN Reason: cervical ripening Stop: 03/07/17 15:42 Last Admin: 03/07/17 16:08 Dose: 25 mcg Misoprostol (Cytotec) Confirm Administered Dose 25 mcg .ROUTE .STK-MED ONE Stop: 03/07/17 19:57 Last Admin: 03/07/17 20:18 Dose: Not Given Misoprostol (Cytotec) 25 mcg VAG ONETIME ONE Stop: 03/07/17 20:18 Last Admin: 03/07/17 20:15 Dose: 25 mcg Nalbuphine HCl (Nubain) 10 mg IVPUSH Q2H PRN PRN Reason: Pain (moderate 4-6) Last Admin: 03/07/17 23:26 Dose: 10 mg Ondansetron HCl (Zofran) 4 mg IVPUSH Q4H PRN PRN Reason: Nausea/Vomiting Last Admin: 03/08/17 13:24 Dose: 4 mg Ondansetron HCl (Zofran) 4 mg IVPUSH ONETIME PRN PRN Reason: Nausea/Vomiting Sodium Chloride (Saline Flush) 10 ml FLUSH ASDIRECTED PRN PRN Reason: Keep Vein Open *Q Meaningful Use (DIS) - VTE *Q VTE Criteria *Q: - Stroke *Q Stroke Criteria *Q: - AMI *Q AMI Criteria *Q:
[2017-03-10] MEDS: Ibuprofen 600 MG Tab PO PRN ×2 (09:49→22:47)
[2017-03-10] MEDS: Docusate Sodium 100 MG Cap PO PRN ×2 (09:49→22:47)
[2017-03-10] MEDS: Witch Hazel Medicated Pads 100/Jar TOP PRN (18:35)
[2017-03-10] MEDS: Benzocaine/Menthol 20%-0.5% Spray 56 GM Canister TOP PRN (18:36)
[2017-03-11 00:24] VITALS: BP 147/77
== END 2017-03-10 22:50 | disposition home or self-care (01) | DRG 560 ==
LOC: UNDOADMOB 07:27 → JD.OB 07:27 → INTOOBSV 17:52 → OBSVTOIN 17:52 → JD.MS 03-08 17:35 → JD.OB 03-09 12:34
PROVIDERS: ADMIT Obstetrics & Gynecology; ATTEND Obstetrics & Gynecology
PROC: 10E0XZZ Delivery of Products of Conception, External Approach (ICD-10-PCS; principal; 2017-03-08)
PROC: 0HQ9XZZ Repair Perineum Skin, External Approach (ICD-10-PCS; 2017-03-08)
PROC: 3E0P7GC Introduction of Other Therapeutic Substance into Female Reproductive, Via Natural or Artificial Opening (ICD-10-PCS; 2017-03-08)
PROC: 00HU33Z Insertion of Infusion Device into Spinal Canal, Percutaneous Approach (ICD-10-PCS; 2017-03-08)
PROC: 3E0R3CZ (ICD-10-PCS; 2017-03-08)
DX: O14.94 Unspecified pre-eclampsia, complicating childbirth (principal); O70.0 First degree perineal laceration during delivery; Z3A.37 37 weeks gestation of pregnancy; Z37.0 Single live birth; Z88.0 Allergy status to penicillin; Z88.1 Allergy status to other antibiotic agents; Z88.6 Allergy status to analgesic agent; O41.1230 Chorioamnionitis, third trimester, not applicable or unspecified
CPT/HCPCS: 01967; 36415; 81003; 82565; 84450; 84460; 85027; 86850; 86870; 86900; 86901; 88307; 88307-26; A9270-GY; J1580; J2300; J2405; J2590; J3010; J3370; J7030; J7050; J7120

== ENCOUNTER 2022-02-22 06:55 | Inpatient (IN) | payer BC ==
[~2022-02-22 06:55] MED LIST: Bupivacaine 0.25% 10 ML SDV ONE; ePHEDrine 50 MG/ML SDV ONE
[2022-02-22] MEDS ORDERED: Sodium Chloride 0.9% 10 ML Syringe FLUSH PRN ×2 (07:05→12:50)
[2022-02-22] MEDS ORDERED: Nalbuphine 10 MG/1 ML Vial IVPUSH PRN (07:05)
[2022-02-22] MEDS ORDERED: Ondansetron 4 MG/2 ML SDV IVPUSH PRN (07:05)
[2022-02-22] MEDS ORDERED: Acetaminophen 325 MG Tab PO PRN (07:05)
[2022-02-22] MEDS ORDERED: Oxytocin/Lactated Ringers 10 UNIT/1,000 ML BAG IV SCH ×2 (07:15→08:00)
[2022-02-22] MEDS: Lactated Ringers 1,000 ML IV SCH ×3 (07:44→16:29)
[2022-02-22] MEDS ORDERED: Sodium Chloride 0.9% 10 ML Syringe FLUSH SCH ×2 (09:00→21:00)
[2022-02-22] MEDS ORDERED: Lidocaine 1%/Sod Bicarbonate in NS 8.4% 1 ML Syringe IDERM PRN (12:50)
[2022-02-22] MEDS ORDERED: diphenhydrAMINE 50 MG/ML SDV IVPUSH PRN (12:52)
[2022-02-22] MEDS ORDERED: ePHEDrine 50 MG/ML SDV IVPUSH PRN (12:52)
[2022-02-22] MEDS ORDERED: Bupivacaine/fentaNYL/NS 100 ML Bag EPIDUR PRN (12:52)
[2022-02-22] MEDS ORDERED: Lactated Ringers 1,000 ML IV SCH (13:00)
[2022-02-22] MEDS: fentaNYL 100 MCG/2 ML SDV EPIDUR PRN ×2 (14:06→15:24)
[2022-02-22] MEDS ORDERED: Witch Hazel Medicated Pads 40/Jar TOP PRN (19:29)
[2022-02-22] MEDS ORDERED: Benzocaine/Menthol 20%-0.5% Spray 78 GM Cannister TOP PRN (19:29)
[2022-02-22] MEDS ORDERED: ceFAZolin 2 GM in Premix Bag 1 BAG IV STA (19:29)
[2022-02-22] MEDS ORDERED: ceFAZolin 2 GM in Sodium Chloride 0.9% 100 ML IV STA (19:42)
[2022-02-22] MEDS: Ibuprofen 600 MG Tab PO PRN (19:56)
[2022-02-22] MEDS: Docusate Sodium 100 MG Cap PO PRN (22:10)
[2022-02-22] MEDS: Acetaminophen 325 MG Tab PO PRN (22:10)
[2022-02-23] MEDS: Ibuprofen 600 MG Tab PO PRN ×3 (02:00→20:14)
[2022-02-23] MEDS: Acetaminophen 325 MG Tab PO PRN ×2 (06:29→12:04)
[2022-02-23] MEDS: Docusate Sodium 100 MG Cap PO PRN (20:18)
[2022-02-24] MEDS: Ibuprofen 600 MG Tab PO PRN ×3 (02:21→16:49)
[2022-02-24] MEDS: Docusate Sodium 100 MG Cap PO PRN (13:49)
[2022-02-24] MEDS: Acetaminophen 325 MG Tab PO PRN (13:49)
[2022-02-24 15:46] VITALS: BP 141/80; PULSE 79
== END 2022-02-24 18:10 | disposition home or self-care (01) | DRG 560 ==
LOC: JD.OB 06:55 → OBSVTOIN 18:44 → INTOOBSV 18:44 → JD.OB 18:45
PROVIDERS: ADMIT Obstetrics & Gynecology; ATTEND Obstetrics & Gynecology
PROC: 10E0XZZ Delivery of Products of Conception, External Approach (ICD-10-PCS; principal; 2022-02-22)
PROC: 10907ZC Drainage of Amniotic Fluid, Therapeutic from Products of Conception, Via Natural or Artificial Opening (ICD-10-PCS; 2022-02-22)
PROC: 10D17Z9 Manual Extraction of Products of Conception, Retained, Via Natural or Artificial Opening (ICD-10-PCS; 2022-02-22)
PROC: 3E0R3BZ Introduction of Anesthetic Agent into Spinal Canal, Percutaneous Approach (ICD-10-PCS; 2022-02-22)
PROC: 00HU33Z Insertion of Infusion Device into Spinal Canal, Percutaneous Approach (ICD-10-PCS; 2022-02-22)
DX: O13.4 Gestational [pregnancy-induced] hypertension without significant proteinuria, complicating childbirth (principal); Z37.0 Single live birth; Z3A.39 39 weeks gestation of pregnancy; O73.0 Retained placenta without hemorrhage
CPT/HCPCS: 01967; 36415; 51702; 59025; 59409; 82565; 82570; 83615; 84156; 84450; 84460; 84520; 84550; 85027; 86592; 86850; 86870; 86900; 86901; A9270-GY; J0690; J2300; J2405; J2590; J3010; J3490; J7120